=== PATIENT | female | born 1965 | race Caucasian/White ===

== ENCOUNTER 2021-08-27 07:33 | Emergency (ER) | payer OTHER ==
[~2021-08-27 07:33] MED LIST: ASPIRIN CHEWABL81 MG PO; BASAGLAR K100 UNIT/1 SC; HUMALOG 75100 UNIT/M SUBD; HUMALOG SC; HUMULIN R100 UNIT/1 SC; KLONOPIN1 MG PO; LAMICTAL100 M1 PO; LEVEMIR100 UNIT/1 SC; LITHIUM300 MG PO; PROPRANOLOL HCL10 MG PO; PROTONIX 40MG T40 MG PO; SEROQUEL 100MG100 MG PO; VRAYLAR3 MG PO
== END 2021-08-27 09:15 | disposition home or self-care (01) ==
LOC: FER 07:33
DX: E11.649 Type 2 diabetes mellitus with hypoglycemia without coma (principal); I11.0 Hypertensive heart disease with heart failure; I50.9 Heart failure, unspecified; Z88.5 Allergy status to narcotic agent; Z88.8 Allergy status to other drugs, medicaments and biological substances; Z88.2 Allergy status to sulfonamides
CPT/HCPCS: 99285

== ENCOUNTER 2022-01-02 12:14 | Emergency (ER) | payer OTHER ==
[2022-01-02 13:29] LABS: INFLUENZA A NAA NEGATIVE (NEGATIVE)
[2022-01-02 13:34] LABS: CORONAVIRUS 2019 SARS-COV-2 POSITIVE (NEGATIVE)
[2022-01-02 13:58] LABS: BASOPHIL 0.9 % (0-2); EOSINOPHIL 2.4 % (0-5); HCT 43.3 % (37.0-47.0); HGB 14.6 g/dl (12.5-16.0); LYMPHOCYTE 40.9 % (15-48); MCH 30.7 pg (25.0-31.0); MCHC 33.7 g/dL (32.0-36.0); MONOCYTE 6.5 % (0-12); MPV 10.2 fL (6.0-9.5); NEUTROPHIL 48.7 % (41-80); NRBC 0; PLT 320 K/uL (150-400); RBC 4.76 M/uL (4.20-5.40); RDW 12.2 % (11.5-14.0)
[2022-01-02 14:22] LABS: BILIRUBIN 1+ mg/dL (NEGATIVE); BLOOD NEGATIVE Ery/uL (NEGATIVE); CLARITY CLEAR (CLEAR); COLOR YELLOW (YELLOW); GLUCOSE (U) 3+ mg/dL (NORMAL); LEUKOCYTES TRACE Leu/uL (NEGATIVE); NITRITE NEGATIVE (NEGATIVE); PROTEIN NEGATIVE (NEGATIVE); SPECIFIC GRAVITY >=1.030 (1.001-1.030); UROBILINOGEN 0.2 mg/dL (0.2-1.0)
[2022-01-02 14:26] LABS: AMPHETAMINES NEGATIVE (NEGATIVE); BARBITURATES NEGATIVE (NEGATIVE); ECSTASY (MDMA) NEGATIVE (NEGATIVE); MARIJUANA (THC) NEGATIVE (NEGATIVE); METHADONE NEGATIVE (NEGATIVE); OPIATES NEGATIVE (NEGATIVE); OXYCODONE NEGATIVE (NEGATIVE)
[2022-01-02 14:29] LABS: LACTIC ACID 1.7 mmol/L (0.4-1.9)
[2022-01-02 14:29] LABS: MUCOUS MODERATE
[2022-01-02 14:30] LABS: SQUAMOUS EPITHELIAL CELLS 20-50
[2022-01-02 14:31] LABS: URINARY RBC RARE
[2022-01-02 14:32] LABS: BACTERIA TRACE
[2022-01-02 14:34] LABS: ALBUMIN 3.9 g/dL (3.4-5.0); BILIRUBIN - TOTAL 0.7 mg/dL (0.2-1.0); BUN/CREAT RATIO (CALC) 15.1 RATIO; CREATININE 0.73 mg/dL (0.51-0.95); GLOBULIN (CALCULATION) 3.3 g/dL; POTASSIUM 4.3 mmol/L (3.5-5.1); TOTAL PROTEIN 7.2 g/dL (6.4-8.2)
== END 2022-01-02 15:12 | disposition home or self-care (01) ==
LOC: FER 12:14
PROVIDERS: Physician Assistant
DX: U07.1 COVID-19 (principal); E11.65 Type 2 diabetes mellitus with hyperglycemia; E11.40 Type 2 diabetes mellitus with diabetic neuropathy, unspecified; I10 Essential (primary) hypertension; Z88.5 Allergy status to narcotic agent
CPT/HCPCS: 36415; 36600; 80053; 80305; 81001; 82803; 83605; 84484; 85025; 93005; U0002